=== PATIENT | male | born 1950 | race Caucasian/White ===

== ENCOUNTER 2021-10-21 09:00 | Outpatient (RCR) | payer MEDICARE, SELFPAY ==
--- NOTE | 2021-10-21 09:54 | PTOPEVAL ---
Thank you for referring Leon Collado to [facility] The patient is scheduled to be seen for therapy? ____x/week for ___ weeks. Please review, sign, date and return this plan of care TREVIN. I agree with and certify that the following plan of care is medically necessary. Referring Physician Date Admitting Provider: Attending Provider: CHLOE GILLIAM Referring Provider: *HANNA Outpatient Evaluation Start: 10/21/21 09:03 Freq: Status: Active Protocol: Document 10/21/21 09:05 [facility] (Rec: 10/21/21 09:53 [facility] [id number]) Therapy Assessment Status Assessment Status Assessment Status Evaluation Evaluation Information Problem Diagnosis lower back pain, L radiculopathy, L knee pain Onset 10/06/21 Additional Evaluation Detail LEFS = 27% functionally declined oswestry = 24% functionally declined Subjective Information patient reports he is having Query Text:As Reported By Patient/ pain in the back of the L knee Family . he reports the pain is a burning pain at times. he reports increased pain with standing after sitting for a long time. he reports he also has increased pain with standing for long time. he reports the knee feels better when it is bent up towards him . he reports he has been having this increased pain for 3-4 months. he reports he has had xray of the bilateral knees and reports he does not have arthritis in the L knee per his ortho. he reports no butt pain, but does have pain all behind the L knee. he reports he has had no xray of the lumbar spine. Prior Level of Function Comments Additional Prior Level of Function patient reports 3-4 months ago Comments he was getting around without any issues. 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 Pain Assessment Timing of Pain Assessment Timing of Pain Assessment Assessment Pain Scale Pain Scale Used Numeric (1 - 10) Self
--- NOTE | 2021-12-29 15:20 | PTOPEVAL ---
Thank you for referring Leon Collado to [facility].? The patient is scheduled to be seen for therapy? ____x/week for ___ weeks. Please review, sign, date and return this plan of care TREVIN. I agree with and certify that the following plan of care is medically necessary. Referring Physician Date Admitting Provider: Attending Provider: CHLOE GILLIAM Referring Provider: MARANDA Outpatient Evaluation Start: 10/21/21 09:03 Freq: Status: Active Protocol: Document 12/29/21 15:00 [facility] (Rec: 12/29/21 15:18 [facility] [id number]) Therapy Assessment Status Assessment Status Assessment Status Discharge Outpatient Past Medical History Neurological History Hx Neurological Disorders No Significant History Cardiovascular History Hx Hypertension Yes Respiratory History Hx COVID-19 Yes: 05/2020, mild symptoms Gastrointestinal History Hx Gastrointestinal Disorders No Significant History Genitourinary History Hx Genitourinary Disorders No Significant History Musculoskeletal History Hx Arthritis Yes: LT KNEE Hx Joint Replacement Yes: RTKA 2019 Hematological History Hx Hematological Disorders No Significant History Endocrine History Hx Endocrine Disorders No Significant History HEENT History Hx Sinus Problems Yes: CHRONIC SINUSITIS, LARGE AMT SINUS DRNG Integumentary History Hx Skin Disorders No Significant History Reproductive History Hx Reproductive Disorders No Significant History Psychosocial History Hx Anxiety Yes Hx Depression Yes Pain History History of Any Previous or Ongoing No Significant History Instance of Pain Anesthesia History Hx Anesthesia Reactions No Significant History Other History Hx Implanted Device Yes: RTKA Evaluation Information Problem Diagnosis lower back pain, L radiculopathy, L knee pain Onset 10/06/21 Additional Evaluation Detail LEFS = 15% functionally declined oswestry = 24% functionally declined Subjective Information patient reports he feels Query Text:As Reported By Patient/ great this date. he reports Family he has not been to therapy in about 2 months due to being out working on a few jobs. he reports he has been doing exercises daily and has had no flare ups or pain. he reports the worst activity for him is only when sitting for 4 h
== END 2021-12-29 16:56 | disposition home or self-care (01) ==
LOC: CHSPT 09:00
DX: M54.42 Lumbago with sciatica, left side (principal); M25.562 Pain in left knee
CPT/HCPCS: 97110; 97161; 97530

== ENCOUNTER 2021-10-27 09:10 | Outpatient (CLI) | payer MEDICARE, OTHER, SELFPAY ==
--- NOTE | 2021-10-27 09:27 | ECG_ITS ---
Measurements Intervals [place] Rate: 75 P: 32 WI: 188 QRS: -6 QRSD: 100 T: 30 QT: 364 QTc: 408 Interpretive Statements SINUS RHYTHM BORDERLINE T WAVE ABNORMALITY- INFERIOR LEADS BASELINE ARTIFACT- I, II, III, AVR BORDERLINE ECG Electronically Signed On 10-27-2021 9:33:54 CDT by Nayan Lu D.O.
== END 2021-10-27 09:11 | disposition home or self-care (01) ==
PROVIDERS: PCP Internal Medicine; Visit Provider Otolaryngology
DX: Z01.810 Encounter for preprocedural cardiovascular examination (principal); I10 Essential (primary) hypertension
CPT/HCPCS: 93005

== ENCOUNTER 2021-10-28 00:42 | Day surgery (SDC) | payer MEDICARE, OTHER, SELFPAY ==
--- NOTE | 2021-10-23 14:38 | PM.HPGS ---
History of Present Illness History of Present Illness Consent: Risks, benefits, and alternatives have been discussed and questions answered. Patient agrees to proceed with procedure. Chief complaint: Chronic Sinusitis Narrative: Leon Collado is a 71 year old male constant sinus drainage that has an opacified left maxillary sinus Review of Systems Review of Systems: All systems reviewed & are unremarkable except as noted in HPI and below PMFSH Past Medical History Medical History Headache Hypertension Surgical History Surgical History History of right knee joint replacement Hx of hand surgery Family History Family History Father Patient's father is in good health Sibling Hypertension Patient's sister is in good health Patient's brother is in good health Mother Diabetes mellitus Hypertension Social History Social History Smoking status: Former smoker Smoking end date: 06/14/09 Alcohol intake: current Comments social family medical surgical history unremarkable Meds Home Medications and Allergies Home Medications Medication Instructions Recorded Confirmed Type No Home Medications 10/16/21 10/16/21 History Allergies Allergy/AdvReac Type Severity Reaction Status Date / Time No Known Allergies Allergy Verified 10/16/21 10:52 Exam Narrative: chest clear heart murmurs abdomen soft septum deviated to the right Assessment and Plan Additional Plan plan endoscopic septoplasty and maxillary antrostomy
[2021-10-24 09:46] VITALS: BMI 30.7
--- NOTE | 2021-10-24 09:58 | PC.NURSE ---
Report to the Outpatient Waiting Room, entrance under the green pavilion located off [facility], at time _7:45AM on date _10/28/21 . OR Time: __9:45AM . - You and your visitor will be asked a series of questions to screen for COVID 19 for your protection. - Only one visitor is allowed at this time. - The patient visitor is requested to leave or wait in car when not with patient. - A mask is required within the hospital. Patients may have clear liquids (water, carbonated beverages, clear teas, apple juice) until 3 hours prior to surgery with a maximum of 20 ounces. - No food from midnight until time of surgery - Infants may have breast milk until 4 hours before surgery, formula 6 hours prior to surgery. - Children will be allowed to drink immediately following surgery. If applicable, please bring a bottle or sippy cup to assist with drinking. Juice, water, soda, and popsicles are readily available. For infants on formula, please bring formula the day of surgery. Pacifiers are allowed. Take the following medications with a SIP of water the morning of surgery: ___AMLODIPINE/BENAZEPRIL, VENLAFAXINE Medications to discontinue per physician HOLD ALL VITAMINS/SUPPLEMENT 3 DAYS PRE-OP Date to take last dose___10/24/21 Please no make-up, nail telugu, hairspray, perfume, deodorant, or body powder the day of surgery. No jewelry (including any body piercings) or valuables the day of surgery, leave them at home. Please take a shower or bath the night before, or the morning of, surgery with an antibacterial soap. Wear comfortable, loose fitting clothing. Children are encouraged to wear pajamas. - Jewelry must be removed prior to entering the operating room. Rings and piercings that are not removed may be cut off. - The hospital will not accept responsibility for valuables. - Please leave all valuables, including medications, at home the day of surgery. If you are going home after surgery, a licensed drop hammer pile driver operator must drive you home. - NO public transportation without another adult. - We recommend that an adult stay with you for 24 hours following discharge. - We also recommend that you do not drive, make important decision, drink alcoholic beverages, or take any drugs that were not prescribed by your health care provider for at least 24 hours after your discharge time. For Pediatric surgeries, we recommend two adults accompany the child home (only one inside the building at this time). Follow any additional instructions given to you from your surgeon. If you or anyone in your household have experienced Covid symptoms in the past week, please notify your surgeon or the nurse liaison at the phone number below for possible testing. Telephone instructions given to __PATIENT and asked if any additional questions and then verbalized understanding. Patient advised to call surgeon office or pre surgery nurse liaison [phone] if any additional questions.
[2021-10-28] VITALS (9 sets, daily range): BP systolic 73–163; BP diastolic 54–93; PULSE 55–80; RESP 10–16; TEMP 36.4–36.5; O2SAT 97–98
--- NOTE | 2021-10-28 06:02 | WPDHPUPDATE1 ---
History and Physical Update Update Date/Time: 10/28/21 06:02 History and Physical has been reviewed, including an updated exam of the patient. There are NO changes in the patient's condition. Risks, benefits, and alternatives have been discussed and questions answered. Patient agrees to proceed with procedure.
[2021-10-28] MEDS: ACETAMINOPHEN 500 MG TABLET 1000 MG PO (08:07)
[2021-10-28] MEDS: LACTATED RINGERS 1,000 ML 30 ML IV CONT ×2 (08:21→11:17)
--- NOTE | 2021-10-28 09:07 | P.PNAN_ITS ---
Anes - Initial Pre Proc Eval Procedure: Operation Date: 10/28/21 09:45 Proposed Procedures p Endoscopic Septoplasty, Bilateral Inferior Turbinectomy, Bilateral Maxillary Antrostomy - Vinny Carranza MD Date/Time: 10/28/21 09:07 Surgeon: Vinny Carranza MD Pre Op Diagnosis: Chronic Sinusitis Patient Data Age: 71 Gender: M Height: 1.84 m Weight: 100 kg Last Vital Signs Temp 36.5 C 10/28/21 08:01 Pulse 72 10/28/21 08:01 Resp 16 10/28/21 08:01 BP 132/85 10/28/21 08:01 Pulse Ox 98 10/28/21 08:01 Allergies Allergy/AdvReac Type Severity Reaction Status Date / Time No Known Allergies Allergy Verified 10/28/21 07:48 Home Medications Medication Instructions Recorded Confirmed Type amlodipine-benazepril 1 cap PO QAM 10/24/21 10/28/21 History celecoxib 200 mg PO QAM 10/24/21 10/28/21 History cyanocobalamin (vitamin B-12) 1,000 mcg PO DAILY 10/24/21 10/28/21 History fluticasone propionate 1 spray INTRANASAL QAM 10/24/21 10/28/21 History venlafaxine 37.5 mg PO QAM 10/24/21 10/28/21 History Patient hx anesthesia problems: none Family hx anesthesia problems: none Results Review: All pre-operative results and documents have been reviewed as part of the pre-operative evaluation. [facility] Past Medical History Medical History (Updated 10/28/21 @ 09:07 by Cristhian Ribeiro MD) Headache Hypertension Obesity Surgical History Surgical History History of right knee joint replacement Hx of hand surgery Family History Family History Father Patient's father is in good health Sibling Hypertension Patient's sister is in good health Patient's brother is in good health Mother Diabetes mellitus Hypertension Social History Social History Smoking status: Former smoker Tobacco type: cigars Smoking end date: 06/14/09 Additional smoking assessment comments: SMOKED 2-3 CIGARS/DAY X20 YRS Alcohol intake: current Drinks per week: 21 Substance use: never Living arrangements: with family Additional living arrangements comments: Spiritual care concerns: No Anes - Eval Final PreProcedure Day of Procedure 10/28/21 09:07 Patient weight: overweight Heart: regular rate and rhythm Lungs: clear to auscultation Airway: Mallampati scale class II Neurological: alert and oriented Last oral intake: >/= 8 hours ASA classification: II Emergent: no Anesthetic plan: proceed Anesthesia type and monitoring: general ETT and standard monitoring Results Review: All pre-operative results and documents have been reviewed as part of the pre-operative evaluation. Informed Consent: The patient's anesthetic plan and its attendant risks and benefits were discussed with the patient/family/POA. Questions were solicited and answers provided to the satisfaction of the patient/family/POA.
[2021-10-28] MEDS: COCAINE HCL (*CRX) 4% TOP SOLN 4 ML VIAL 1 APPLIC TOPICAL (09:36)
[2021-10-28] MEDS: LIDO 1%/EPINEPHRINE/PF 1:200,000 30 ML VIAL XX (09:41)
--- NOTE | 2021-10-28 10:12 | W.PM.PROC2 ---
Procedure Note - Detailed Date of Procedure 10/28/21 Pre-op Diagnosis Chronic Sinusitis Post-op Diagnosis Same Procedure Performed Septal plasty left nasal antral window Surgeon Vinny Carranza MD Description of Procedure Patient prepped and draped usual fashion general anesthesia the septum was injected xylocaine with adrenaline as was the inferior turbinate and nasal antral window area a right hermelindo transfix is made left anterior and posterior tunnels elevated the bony cartilage junction right posterior elevated the bony deviation was removed this swelling the cartilages and cysts and bony septum to the midline incision closed with 4-0 chromic and Tyler splints sutured in with 2-0 silk attention directed to the left nasal antral window the middle turbinate was medialized and a large nasal antral window was created into the left maxillary sinus large amount of pus and thickened mucous membrane lining was removed from the left maxillary sinus half of a Tyler splint behalf of nasal Spore splint placed in the left side
--- NOTE | 2021-10-28 10:16 | P.OP_ITS ---
Procedure Note - Detailed Date of Procedure 10/28/21 Pre-op Diagnosis Chronic Sinusitis Post-op Diagnosis Same Surgeon Vinny Carranza MD
--- NOTE | 2021-10-28 10:17 | P.OP_ITS ---
Procedure Note - Detailed Date of Procedure 10/28/21 Pre-op Diagnosis Chronic Sinusitis Post-op Diagnosis Same Procedure Performed Septoplasty and left maxillary antrostomy Surgeon Vinny Carranza MD Anesthesia General Description of Procedure Patient prepped and draped in usual fashion after induction of general endotracheal anesthesia. The nose was packed with cocaine 4% impregnated cottonoids. Injected 1% xylocaine 1 to [id number] epinephrine. With the aid of the 0 degree endoscope on the right side the nose was inspected the middle turbinate was medialized and turbenectomy was done with the micro debrider the ethmoid bulla opened with microdebrider as was the basal lamella and the posterior ethm oid. The natural ostia of the maxillary sinus was opened and enlarged with microdebrider thickened mucous membrane lining was removed and then packed with a mature this procedure repeated on the other sinus with identical similar findings. Uncinectomy was done on both sides. The ethomoid bulla was opened with micro debrider thickened mucos membrane was removed. Was then packed with Surgicel. Patient awakened returned to recovery in good condition a large left nasal antral window was then created a large amount of pus was aspirated packed with nasal support. Complications No immediate complications Condition Stable
--- NOTE | 2021-10-28 11:18 | SUR.PHASEI ---
1022 pt awake, oral airway out, pt started having a coughing spell. started oozing blood from nose and mouth, dr engel at bedside with me suctioning blood out of nose and mouth. afrin nasal spray brought from or squirted into each nostril. bleding/oozing has subsided, pt is doing okay. vital signs stable, no pain, new drip pad placed below nose.
[2021-10-28] MEDS: oxyCODONE HCL (*CRX) 5 MG TAB IR PO (12:08)
--- NOTE | 2021-10-29 08:53 | W.PM.PROC2 ---
Procedure Note - Detailed Date of Procedure 10/29/21 Pre-op Diagnosis Chronic Sinusitis septal deviation left maxillary sinusitis Post-op Diagnosis Same Procedure Performed septoplasty left nasal antral window Surgeon Vinny Carranza MD Description of Procedure patient was prepped and draped fraction general anesthesia the nose was packed with Afrin impregnated cottonoids and injected with xylocaine with adrenaline a right hermelindo transection was made left anterior and posterior tunnels elevated the bony cartilaginous junction and the bony deviation was removed the swelling the cartilaginous bony remnants to the midline this incision was then closed with 4-0 chromic and Tyler splints sutured with 2-0 silk at this point attention was directed to the low left maxillary sinus the middle turbinate was medialized and a large nasal antral window was created with Adair and backbiting forceps a large amount of pus was aspirated as well as thickened mucous membrane lining a nasal spur nasal pore splint of packing placed in and the procedure terminated Estimated Blood Loss -60.0
== END 2021-10-28 12:34 | disposition home or self-care (01) ==
PROVIDERS: PCP Internal Medicine; Visit Provider Otolaryngology
PROC: (CPT 30520; principal; 2021-10-28 09:45)
DX: J32.9 Chronic sinusitis, unspecified (principal); J33.8 Other polyp of sinus; I10 Essential (primary) hypertension; E66.9 Obesity, unspecified; Z68.29 Body mass index [BMI] 29.0-29.9, adult; Z87.891 Personal history of nicotine dependence
CPT/HCPCS: 30520; 31020; 88305; 88311; A9270; J0330; J1100; J2405; J2704; J3010; J7120

== ENCOUNTER 2023-12-28 07:43 | Outpatient (RCR) | payer MEDICARE, OTHER, SELFPAY ==
--- NOTE | 2023-12-28 07:57 | OPREHPOC ---
Outpatient Therapy Plan of Care This is a Multidisciplinary Plan of Care that may contain components documented by all disciplines (PT, OT, and ST.) PT Problem 1 PT Problem #1 Knowledge Deficit PT Goal 1 Goal 1. independent and compliant with HEP Target Visit 4 PT Problem 2 PT Problem #2 Pain PT Goal 1 Goal 1. patient to report no more than 2/10 pain in the R shoulder the last week. PT Problem 3 PT Problem #3 Impaired Strength PT Goal 1 Goal 1. 5/5 bilateral shoulder ER Target Visit 9 PT Problem 4 PT Problem #4 Impaired Functional Mobil PT Goal 1 Goal 1. quick dash to display less than 20% functional deficits 2. patient to report sleeping through the night without pain in the R shoulder. 3. 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 patient to perform 30 minutes of therapy exercises without rest and no increased pain Target Visit 9
--- NOTE | 2023-12-28 07:58 | PTOPEVAL1 ---
Assessment and note entered by JT File, PT Evaluation Information Assessment Status Evaluation Diagnosis R biceps tendonitis Other ICD-10 Condition Codes ( M75.21 PT) Onset 12/24/23 Subjective Information patient reports he has pain in the R shoulder. he reports he saw his MD back in july for this issue. he reports he was put on meds for the pain and inflammation. he reports he has difficulty sleeping at night due to the pain. 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 he reports the pain is all around the R shoulder. he reports he had an xray of the R shoulder. he reports he has had issues with the R Shoulder for several years. he reports it has been more flared up as of late. he reports no NTB in the hands. Reported Pain Level Pain Score 0: Self Report Assessment PT Clinical Summary mr. avelar is a 73 yo man who presents to skilled PT services for evaluation and treatment of R shoulder pain. he displays tenderness to palpation over the biceps long head, positive impingement testing, and patient with repetitive movements. his signs and symptoms indicated a tendonitis of the biceps long head of the R shoulder. continued skilled PT is indicated to improve his objective/ functional deficits and progress towards return to prior level activities without limitations. Plan of Care Interventions Electrical Stimulation,Hot Pack/Cold Pack,Manual Therapy,Neuro Re-education,Patient/Caregiver Educati,Therapeutic Activities,Therapeutic Exercise PT Services Indicated Yes Treatment Frequency and 3x weekly for 9 visits Duration These treatments will address the objective and functional deficits as defined above. The patient will be advanced safely and appropriately in order for the patient to progress towards his/her prior level of function. Additional exercises will be introduced and as well as a comprehensive home exercise program upon discharge, if needed, ?to ensure carryover of functional gains achieved in the clinic. This treatment plan has been reviewed and agreement upon by the patient.
--- NOTE | 2024-01-03 08:50 | PCPTNOTE ---
pt lizet for tomorrow.
--- NOTE | 2024-01-12 09:46 | PCPTNOTE ---
Patient called & cancelled scheduled appointment this date due to having to work. -Prisclia Sanchez, PT
== END 2024-01-07 09:15 | disposition home or self-care (01) ==
LOC: CHSPT 07:43
PROVIDERS: Visit Provider Internal Medicine
DX: M75.21 Bicipital tendinitis, right shoulder (principal)
CPT/HCPCS: 97110; 97140; 97150; 97161

== ENCOUNTER 2025-04-03 09:19 | Outpatient (CLI) | payer MEDICARE, OTHER, SELFPAY ==
--- NOTE | ~2025-04-03 | XR_ITS ---
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 COMPARISON: No comparisons available. Findings: No acute fracture or malalignment. There are severe degenerative changes of the distal interphalangeal joints especially the first digit with severe degenerative changes of the first metacarpal carpal joint, no erosions are identified Soft tissues unremarkable. Impression: No acute fracture or malalignment. Reviewed, dictated and finalized at location P. Impression: No acute fracture or malalignment.
--- OUTSIDE RECORDS SUMMARY | 2025-04-03 10:34 | XMS_ITS | Clinical Summary ---
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 06/18/2017 Active Active Problems No known active problems Medical History Medical History Date Comments Hypertension Depression Social History Tobacco Use Types Packs/Day Years Used Date Smoking Tobacco: Never Smokeless Tobacco: Never Personal Safety Answer Date Recorded Getting School Help Needed Not on file 08/27 Sex and Gender Information Value Date Recorded Sex Assigned at Not on file Legal Sex Male 10:44 AM [employer] Gender Identity Not on file Sexual Orientation Not on file Obstetrics History Last Filed Vital Signs Vital Sign Reading Time Taken Comments Blood Pressure 127/87 09/01/2017 12:20 PM CDT Pulse 68 09/01/2017 12:20 PM CDT Temperature - - Respiratory Rate - - Oxygen Saturation - - Inhaled Oxygen Concentration - - Weight 102.5 kg (226 lb) 09/01/2017 12:20 PM CDT Height 188 cm (6' 2) 09/01/2017 12:20 PM CDT Body Mass Index 29.02 09/01/2017 12:20 PM CDT Plan of Treatment Not on file Insurance [place] [address] MEDICARE Care Teams Horse Rider Relationship Specialty Start Date End Date Damien Otto MD [id number] [place] [address] PCP - General Internal Medicine 10/10/21
== END 2025-04-03 09:20 | disposition home or self-care (01) ==
PROVIDERS: PCP Internal Medicine; Visit Provider Plastic Surgery
DX: M18.0 Bilateral primary osteoarthritis of first carpometacarpal joints (principal)
CPT/HCPCS: 73130

== ENCOUNTER 2025-04-17 08:05 | Outpatient (CLI) | payer MEDICARE, OTHER, SELFPAY ==
--- OUTSIDE RECORDS SUMMARY | 2025-04-17 08:12 | XMS_ITS | Encounter Summary ---
Author Organization [facility] Address [address] [place] [address] Phone Care Team Providers Care Finance Advisor Name Role Phone Damien Otto MD Primary Care Provider [phone] Aramis Moreno MD Unavailable [phone] Reason for Visit * Reason Comments Medication Refill Encounter Details Date Type Department Care Team (Late st Contact Info) Description 08/01/2022 Refill [facility] - Primary Care - [place] [address] [place] [address] Damien Otto MD [address] [place] [address] Medication Refill Social History Tobacco Use Types Packs/Day Years Used Date Smoking Tobacco: Former Cigarettes 0.1 10 0 09/04/2000 - 09/04/2010 Cigars Smokeless Tobacco: Never Alcohol Use Standard Drinks/Week Comments Not Asked 14 (1 standard drink = 0.6 oz pu re alcohol) 2 beers daily Education Answer Date Recorded What is the highest level of school you have completed or the highest degree you have received? 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 No / Unsure 07/31/2022 8:22 AM HADOOP ADMIN documented as of this encounter Miscellaneous Notes * Telephone Encounter - Hyun Comer RN - 08/03/2022 8:36 AM CST venlafaxine (EFFEXOR) 37.5 MG Tablet 90 Tablet 1 04/23/2022 Refill too soon OP ADMIN documented in this encounter Plan of Treatment Upcoming Encounters Date Type Department Care Team (Late st Contact Info) Description 08/09/2025 8:00 AM HADOOP ADMIN Office [facility] Care - [place] [address] [place] [address] Damien Otto MD [address] [place] [address] documented as of this encounter Visit Diagnoses Diagnosis Anxiety and depression Dysthymic disorder documented in this encounter Additional Health Concerns Assessment Noted Time PHQ-9 Depression Total Score: 0 12/10/19 18 10:00 AM CDT documented as of this encounter Care Teams Finance Advisor Relationship Specialty Start Date End Date Damien Otto MD [address] [place] [address] PCP - General Internal Medicine 09/03/16 [place] [address] [address] [place] [address] Consulting Physician Orthopaedic Surgery 12/13/18 Dale Gupta MD Consulting Physician Ophthalmology 11/16/24 documented as of this encounter
--- OUTSIDE RECORDS SUMMARY | 2025-04-17 08:12 | XMS_ITS | Encounter Summary ---
Author Organization [facility] Address [address] [place] [address] Phone Care Team Providers Care Pharmacist Intern Name Role Phone Damien Otto MD Primary Care Provider [phone] Aramis Moreno MD Unavailable [phone] Reason for Visit * Reason Comments Medication Refill Encounter Details Date Type Department Care Team (Late st Contact Info) Description 08/14/2023 Refill [facility] - Family Medicine - [place] [address] [place] [address] Damien Otto MD [address] [place] [address] Medication Refill Social History Tobacco Use Types Packs/Day Years Used Date Smoking Tobacco: Former Cigarettes 0.1 10 0 09/04/2000 - 09/04/2010 Cigars Smokeless Tobacco: Never Alcohol Use Standard Drinks/Week Comments Not Currently 14 (1 standard drink = 0.6 oz pu re alcohol) 2 beers daily [facility] Utilities Answer Date Recorded In the past 12 months has [employer] electric, gas, oil, or water company threatened to shut off services in your home? No 08/04/2023 Social Connection and Isolation Panel Answer Date Recorded In a typical week, how many times do you talk on the phone with family, friends, or neighbors? Three times a week 08/04/2023 How often do you get togethe r with friends or relatives? More than three times a week 08/04/2023 How often do you attend chur ch or presybeterian services? 1 to 4 times per year 08/04/2023 Do you belong to any clubs o r organizations such as yarsani groups, unions, fraternal or athletic groups, or school groups? No 08/04/2023 How often do you attend meet ings of the clubs or organizations you belong to? Never 08/04/2023 Are you , , di vorced, , never , or living with a partner? 08/04/2023 AUDIT-C Answer Date Recorded Q1: How often do you have a drink containing alcohol? 4 or more times a week 08/04/2023 Q2: How many drinks containi ng alcohol do you have on a typical day when you are drinking? 3 or 4 Q3: How often do you have si x or more drinks on one occasion? Never 08/04/2023 Overall Financial Resource Strain (CARDIA) Answe r Date Recorded How hard is it for you to pa y for the very basics like food, housing, medical care, and heating? Not very hard 08/04/2023 PHQ-2 Answer Date Recorded Total Score - Questions 1-9 0 05/14 [facility] - Occupational Stress Questionnaire Answer Date Recorded Do you feel stress - tense, restless, nervous, or anxious, or unable to sleep at night because your mind is troubled all the time - these days? Not at all 08/04/2023 Exercise Vital Sign Answer Date Recorde d On average, how many days pe r week do you engage in moderate to strenuous exercise (like a brisk walk)? 7 days 08/04/2023 On average, how many minutes do you engage in exercise at this level? 20 min 08/04/2023 Hunger Vital Sign Answer Date Recorded Within the past 12 months, y ou worried that your food would run out before you got the money to buy more. Never true 08/04/19 24 Within the past 12 months, t he food you bought just didn't last and you didn't have money to get more. Never true 08/04/2023 PRAPARE - Transportation Answer Date Re corded In the past 12 months, has l ack of transportation kept you from medical appointments or from getting medications? No 07/16 In the past 12 months, has l ack of transportation kept you from meetings, work, or from getting things needed for daily living? No 08/04/2023 Housing Stability Vital Sign Answer Jigar e Recorded In the last 12 months, was t here a time when you were not able to pay the mortgage or rent on time? No 08/04/2023 Number of Places Lived in the Last Year Not on f ile 08/04/2023 In the last 12 months, was t here a time when you did not have a steady place to sleep or slept in a retirement (including now)? No 08/04/2023 Education Answer Date Recorded What is the [...] file Not on file Not on file documented as of this encounter Miscellaneous Notes * Telephone Encounter - Phong King RN - 08/16/2023 10:12 AM CST Medication(s) refilled and signed per [facility] Chronic Medication Refill Standing Order for Pediatricand Adult Patients. Requested Prescriptions Pending Prescriptions Disp Refills amLODIPine-benazepril (LOTREL) 2.5-10 MG Capsule [Pharmacy Med Name: AMLODIPINE- BENAZ 2.5/10MG CAPSULES] 90 Capsule 3 Sig: TAKE 1 CAPSULE BY MOUTH EVERY MORNING MELODIE INHIBITOR-[employer] TORO PROTOCOL Passed - 08/14/2023 5:51 AM Passed - Serum potassium on record in past 12 months POTASSIUM Date Value Ref Range Status 08/06/2023 4.1 3.5 - 5.1 mmol/L Final Passed - Blood pressure on record in past 12 months Clinician-entered: BP Readings from Last 3 Encounters: 08/06/23 120/68 05/24/23 120/72 09/01/22 122/74 Patient-entered: No data recorded Passed - Visit with relevant provider in past 12 months or upcoming 90 days Recent Visits Date Type Provider Dept 08/06/23 Office Visit Damien Otto MD [facility] 05/24/23 Office Visit Gabe Bonilla, ILIR [facility] Showing recent visits within past 365 days and meeting all other requirements Future Appointments No visits were found meeting these conditions. Showing future appointments within next 90 days and meeting all other requirements Passed - GFR on record in past 12 months GFR, EST. NONAFRICAN Date Value Ref Range Status 08/06/2023 56 (L) >=60 Final ITECTURAL PRACTICE MANAGER documented in this encounter Plan of Treatment Upcoming Encounters Date Type Department Care Team (Late st Contact Info) Description 08/09/2025 8:00 AM ARCHITECTURAL PRACTICE MANAGER Office Visit [facility] - Primary Care - [place] [address] [place] [address] Damien Otto MD [address] [place] [address] documented as of this encounter Visit Diagnoses Not on filedocumented in this encounter Additional Health Concerns Assessment Noted Time PHQ-9 Depression Total Score: 0 05/24/20 23 7:45 AM ARCHITECTURAL PRACTICE MANAGER documented as of this encounter Care Teams Pharmacist Intern Relationship Specialty Start Date End Date Damien Otto MD [address] [place] [address] PCP - General Internal Medicine 09/03/16 [place] [address] [address] Consulting Physician Orthopaedic Surgery 12/13/18 Dale Gupta MD Consulting Physician Ophthalmology 11/16/24 documented as of this encounter
--- OUTSIDE RECORDS SUMMARY | 2025-04-17 08:12 | XMS_ITS | Encounter Summary ---
Author Organization [facility] Address [address] [place] [address] Phone Care Team Providers Care Roller Skate Repairer Name Role Phone Damien Otto MD Primary Care Provider [phone] Aramis Moreno MD Unavailable [phone] Reason for Visit * Reason Comments Medication Refill Encounter Details Date Type Department Care Team (Late st Contact Info) Description 10/27/2023 Refill [facility] - Primary Care - [place] [address] [place] [address] Damien Otto MD [address] [place] [address] Medication Refill Social History Tobacco Use Types Packs/Day Years Used Date Smoking Tobacco: Former Cigarettes 0.1 10 0 09/04/2000 - 09/04/2010 Cigars Smokeless Tobacco: Never Alcohol Use Standard Drinks/Week Comments Not Currently 14 (1 standard drink = 0.6 oz pu re alcohol) 2 beers daily [facility] Utilities Answer Date Recorded In the past 12 months has [email or web address], gas, oil, or water company threatened to [...] often do you attend chur ch or zoroastrianism services? 1 to 4 times per year 08/04/2023 Do you belong to any clubs o r organizations such as amish groups, unions, fraternal or athletic groups, or [...] Total Score - Questions 1-9 0 05/14 [facility] of Occupat ional Health - Occupational Stress [...] place to sleep or slept in a long term (including now)? No 08/04/2023 Education Answer Date [...] encounter Miscellaneous Notes * Telephone Encounter - Myrna Deluna RN - 10/27/2023 8:38 AM CDT [facility] Medication Refill Standing Order for Pediatricand Adult Patients. Requested Prescriptions Pending Prescriptions Disp Refills venlafaxine (EFFEXOR) 37.5 MG Tablet [Pharmacy Med Name: VENLAFAXINE 37.5MG TABLETS] 90 Tablet 2 Sig: TAKE 1 TABLET BY MOUTH DAILY SNRI (6 Month Refill Only) Protocol Passed - 10/27/2023 8:36 AM Passed - Visit with relevant provider in past 6 months or upcoming 90 days Recent Visits Date Type Provider Dept 08/06/23 Office Visit Damien Otto MD [facility] 05/24/23 Office Visit Gabe Bonilla PAC [facility] Showing recent visits within past 182 days and meeting all other requirements Future Appointments No visits were found meeting these conditions. Showing future appointments within next 90 days and meeting all other requirements Passed - Has an encounter in the past 6 months with a depression or anxiety visit diagnosis Passed - Patient has established therapy with Serotonin-Norepinephrine Reuptake Inhibitors for at least 6 months documented in this encounter Plan of Treatment Upcoming Encounters Date Type Department Care Team (Late st Contact Info) Description 08/09/2025 8:00 AM INSPECTOR PUBLICATIONS Office Visit [facility] - Primary Care - [place] [address] [place] [address] Damien Otto MD [address] [place] [address] documented as of this encounter Visit Diagnoses Diagnosis Anxiety and depression Dysthymic disorder documented in this encounter Additional Health Concerns Assessment Noted Time PHQ-9 Depression Total Score: 0 05/24/20 7:45 AM INSPECTOR PUBLICATIONS documented as of this encounter Care Teams Roller Skate Repairer Relationship Specialty Start Date End Date Damien Otto MD [address] [place] [address] PCP - General Internal Medicine 09/03/16 [place] [address] [facility] [address] [place] [address] Consulting Physician Orthopaedic Surgery 12/13/18 Dale Gupta MD Consulting Physician Ophthalmology 11/16/24 documented as of this encounter
--- OUTSIDE RECORDS SUMMARY | 2025-04-17 08:12 | XMS_ITS | Clinical Summary ---
Author Organization [facility] Address [address] [place] [address] Care Team Providers Care Charge Account Authorizer Name Role Phone Damien Otto MD Primary Care Provider [phone] Source Comments [employer],non-owned Affiliates and Associated Physician Practices is amultiple site organization consisting of ambulatory clinics and hospital sitesin [place], [place], [place] and [place]. This disclosure is being madepursuant to the Care Everywhere program and may not contain all information available regarding this patient. Last updated 18.[employer] Allergies No known active allergies Medications * Be aware that medications may not be up to date on this document. Alwaysverify current medications with the patient. amLODIPine-christiano zepril (LOTREL) 2.5-10 MG capsule once daily 9 Active venlafaxine XR 24hr (EFFEXOR XR) 37.5 MG capsule Take 1 (one) capsule by mouth once daily 9 Active vitamin D3-cholecalcife rol (CHOLECACIFEROL ) 1000 units tablet Take by mouth once daily Active cyanocobalamin (Vitamin B-12) 1000 MCG tablet Take 1 (one) tablet by mouth once daily Active Multiple Vitamins-Minera ls (ICAPS AREDS 2 PO) Take by mouth once daily Active omeprazole (PriLOSEC) 20 MG capsule Take 1 (one) capsule by mouth daily before breakfast for 42 days 42 capsule 03/02/2024 2:16 PM CDT 4 Active acetaminophen (Tylenol) 500 MG capsule Take 2 (two) capsules by mouth 3 times daily Take for ten days then as needed. 4 Active celecoxib (CeleBREX) 100 MG capsule Take 1 (one) capsule by mouth 2 times daily 60 capsule 1 4 Active oxyCODONE, immediate release, (Roxicodone) 5 MG tabletIndicatio ns:Postoperativ e pain Take 1 (one) tablet to 2 (two) tablets by mouth every 4 hours as needed for Pain 42 tablet 4 Active methylPREDNISol one (Medrol Dosepak) 4 MG tablet Take by mouth as directed Take as directed by mouth per package instructions. 21 tablet 4 Active Active Problems Problem Noted Date Diagnosed Date Low back pain with left-sided sciatica 2 Primary osteoarthritis of left knee 08/19/2021 Status post right knee replacement 08/19/2021 Anxiety disorder, unspecified 07/07/2019 Disturbance of skin sensation 07/07/2019 Esophageal reflux 07/07/2019 Vitamin D deficiency 07/07/2019 RLS (restless legs syndrome) 06/21/2019 Duodenal ulcer 06/18/2019 Acute blood loss anemia 06/16/2019 Gastrointestinal hemorrhage with melena 06/16/19 20 Orthostatic hypotension 06/16/2019 Primary osteoarthritis of right knee 12/30/2018 Essential hypertension 03/19/2010 Immunizations Immunization Administration Dates Next Due INFLUENZA VACCINE, HIGH-DOSE , QUADR. (FLUZONE HIGH-DOSE QUADRIVALENT; 65Y+), 0.7 ML (HD-IIV4) 05/26/2019 Social History Tobacco Use Types Packs/Day Years Used Date Smoking Tobacco: Former Cigars Smokeless Tobacco: Never Tobacco Cessation:Counseling Given: Not Answered Comments:Quit many years Alcohol Use Standard Drinks/Week Comments Yes 21 (1 standard drink = 0.6 oz pu re alcohol) AUDIT-C Answer Date Recorded Q1: How often do you have a drink containing alcohol? Monthly or less 03/01/2024 Q2: How many drinks containi ng alcohol do you have on a typical day when you are drinking? Patient does not drink 4 Q3: How often do you have si x or more drinks on one occasion? 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 BOARDS STRIPPER ETCHER Gender Identity Not on file Sexual Orientation Not on file Last Filed Vital Signs Vital Sign Reading Time Taken Comments Blood Pressure 164/86 03/02/2024 11:09 AM CDT Pulse 68 03/02/2024 11:09 AM CDT Temperature 36.4 C (97.5 F) 03/02/2024 11:09 AM CDT Respiratory Rate 19 03/02/2024 11:09 AM CDT Oxygen Saturation 97% 03/02/2024 11:09 AM CDT Inhaled Oxygen Concentration 31% 05/25/2019 6 :30 PM PRINTED CIRCUIT BOARDS STRIPPER ETCHER Weight 104.3 kg (230 lb) 04/07/2024 8:42 AM CDT Height 185.4 cm (6' 1) 04/07/2024 8:42 AM CDT Body Mass Index 30.34 04/07/2024 8:42 AM CDT Plan of Treatment Health Maintenance Due Date Last Done Comments COLOGUARD (AGES 45-75) - COL ON CA SCREENING 1949 COLON MONITORING 1949 COLONOSCOPY - COLON CA SCREENING 1949 CT COLONOGRAPHY - COLON CA SCREENING 1950 Colorectal Cancer Screening 1949 FIT - COLON CA SCREENING 1949 FLEX SIG - COLON CA SCREENING 1949 MEDICARE AWV 12 MONTHS 1949 HEPATITIS C SCREENING 09/24/1967 DTAP/TDAP/TD VACCINES (1 - Tdap) 1968 PNEUMOCOCCAL VACCINE 50+ (1 of 1 - PCV) 09/29/1999 ZOSTER VACCINE (1 of 2) 09/29/1999 DEPRESSION SCREENING 06/14/2024 10/18/2023 LIPID TESTING 06/17/2024 06/17/2019 Respiratory Syncytial Virus (RSV) Vaccine Pt: or over 60 yrs (1 - 1-dose 75+ series) 2024 COVID-19 VACCINE ( - 2023-2 5 season) 2025 INFLUENZA VACCINE (#1) 2025 9, 04/03/2018, 03/25/2016 HEPATITIS B VACCINE Aged Out No longe r eligible based on patient's age to complete this topic HIB VACCINE Aged Out No longer eligi ble based on patient's age to complete this topic HPV VACCINE Aged Out No longer eligi ble based on patient's age to complete this topic MENINGOCOCCAL (Group B) VACCINE SHARED DECISION-MAKING Aged Out No longer eligible based on patient's age to complete this topic MENINGOCOCCAL GROUPS A/C/Y/W VACCINE Aged Out No longer eligible b ased on patient's age to complete this topic Medical Devices Implanted Type Area Marine Engineering Professor Device Identifier Shelf Expiration Date Model / Serial / Lot Cmnt Bone Djo Srg Cblt 40gm Hvisc Strl Implanted:Qty : 2 on 05/25/2019 by Aramis Moreno MD at [facility] Right: Knee [employer] 08/04/2020 [id number] / / [id number] Cmpnt Ptlr 34mm 1 Pg Wire Ascnt Arcm Kn Implanted:Qty : 1 on 05/25/2019 by Aramis Moreno MD at [facility] Right: Knee [employer] 04/28/2024 [id number] / / [id number] Tray Tib 79mm Kn Cocr I Beam Implanted:Qty : 1 on 05/25/2019 by Aramis Moreno MD at [facility] Right: Knee [employer] 04/09/2029 [id number] / / [id number] Cmpnt Fem Kn Rt Cr Cmnt Prm Vngrd Intlk Implanted:Qty : 1 on 05/25/2019 by Aramis Moreno MD at [facility] Right: Knee [employer] 01/29/2029 [id number] / / [id number] Brng [id number] Vngrd Arcm Kn Ant Stab Implanted:Qty : 1 on 05/25/2019 by Aramis Moreno MD at [facility] Right: Knee [employer] 01/06/2024 [id number] / / [id number] Wire K 1.1mm 229mm 2 End Troc Pnt Sty 1 Implanted:Qty : 2 on 05/20/2021 by Briana Tillman MD at [facility] Right: Thumb [employer] [id number] / / [id number] Tray Tib 83mm Kn Cocr I Beam Implanted:Qty : 1 on 03/01/2024 by Aramis Moreno MD at [facility] Left: Knee [employer] 08/18/2032 [id number] / / [id number] Cmpnt Fem Kn Lt Cr Cmnt Prm Vngrd Intlk Implanted:Qty : 1 on 03/01/2024 by Aramis Moreno MD at [facility] Left: Knee [employer] 12/29/2033 [id number] / / [id number] Jesu Brng [id number] Vngrd Arcm Kn Ant Stab Implanted:Qty : 1 on 03/01/2024 by Aramis Moreno MD at [facility] Left: Knee [employer] 2028 [id number] BILL ONLY / / [id number] Cmnt Bone Plc R 40gm Grn Implanted:Qty : 1 on 03/01/2024 by Aramis Moreno MD at [facility] Left: Knee [employer] 06/13/2026 [id number] / / [id number] Cmnt Bone Plc R 40gm Grn Implanted:Qty : 1 on 03/01/2024 by Aramis Moreno MD at [facility] Left: Knee [employer] 06/13/2026 [id number] / / [id number] Cmpnt Ptlr Std 31mm 3 Pg Kn Ser A Implanted:Qty : 1 on 03/01/2024 by Aramis Moreno MD at [facility] Left: Knee [employer] 10/04/2028 [id number] / / [id number] Insurance MEDICARE [employer] [facility] Advance Directives Documents on File Type Date Recorded 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
--- OUTSIDE RECORDS SUMMARY | 2025-04-17 08:12 | XMS_ITS ---
Author Organization [facility] Address [address] [facility] [address] [place] [address] Phone Care Team Providers Care Acid Changer Name Role Phone Damien Otto MD Primary Care Provider [phone] Aramis Moreno MD Unavailable [phone] OnCall Chronic Care Management Status:Identified (Enrolling) Start date:03/22/2025 Enrollment reason:Identified using claims or encounter data Related social drivers of health:Intimate Partner Violence, Social Connections, Alcohol Use, Tobacco Use, Financial Resource Strain,Depression, Stress, Physical Activity, Food Insecurity, Transportation Needs, Housing Stability, Utilities Continued Care and Services Coordination
--- OUTSIDE RECORDS SUMMARY | 2025-04-17 08:13 | XMS_ITS | Clinical Summary ---
Author Organization [facility] Address [address] [place] [address] [place] [address] Phone Care Team Providers Care Chemical Research Worker Name Role Phone Damien Otto MD Primary Care Provider [phone] Aramis Moreno MD Unavailable [phone] Allergies No known active allergies Medications Cholecalciferol (VITAMIN D3) 1000 UNIT Tablet Take by mouth every morning. Active Cyanocobalamin (B-12 PO) Take 1,000 mcg by mouth every morning. Active MULTIPLE VITAMINS-MINERA LS PO Take 1 Tablet by mouth daily. Active venlafaxine (EFFEXOR) 37.5 MG TabletIndicatio ns:Anxiety and depression TAKE 1 TABLET BY MOUTH DAILY 90 Tablet 2 01/26/2025 Active amLODIPine-christiano zepril (LOTREL) 2.5-10 MG Capsule TAKE 1 CAPSULE BY MOUTH EVERY MORNING 90 Capsule 2 01/26/2025 Active Active Problems Problem Noted Date Diagnosed Date Low back pain with left-sided sciatica 2 Constipation 07/26/2020 Erectile dysfunction 12/19/2019 Vitamin D deficiency 07/07/2019 Gastroesophageal reflux disease without esophagi tis 07/07/2019 RLS (restless legs syndrome) 06/21/2019 Orthostatic hypotension 06/16/2019 Primary osteoarthritis of left knee 12/30/2018 Hypertension, essential Anxiety and depression Arthritis Resolved Problems Problem Noted Date Diagnosed Date Resolved Date Status post right knee replacement 08/19/2021 09/17/2021 Duodenal ulcer 06/18/2019 07/31/2021 Acute blood loss anemia 06/16/201907/15 Gastrointestinal hemorrhage with melena 06/16/2019 07/31/2021 Ureteropelvic junction (UPJ) obstruction, right 10/21/2016 07/31/2021 Encounters Date Type Department Care Team Description 01/26/2025 Refill [facility] - Primary Care - [place] [address] [place] [address] Damien Otto MD Medication Refill from Last 3 Months Immunizations Immunization Administration Dates Next Due Influenza Vaccine greater than 3 yrs 05/26/2019, 04/03/2018 Influenza, high-dose, trivalent, PF 05/26/2019,1 PUR PCV-13 09/04/2016 PUR TDAP 7+ YRS IM 09/04/2016 Pneumococcal Vaccine Adult - 23 Valent 8 Family History Medical History Relation Name Comments Cancer Brother testicular Congestive Heart Failure Father Diabetes Mother Hypertension Mother Relation Name Status Comments Brother Father Mother Social History Tobacco Use Types Packs/Day Years Used Date Smoking Tobacco: Former Cigarettes 0.1 10 0 09/04/2000 - 09/04/2010 Cigars Smokeless Tobacco: Never Alcohol Use Standard Drinks/Week Comments Yes 14 (1 standard drink = 0.6 oz pu re alcohol) [facility] Utilities Answer Date Recorded In the past 12 months has [employer], oil, or water [employer] threatened to shut off services in your home? No 08/07/2024 Social Connection and Isolation Panel Answer Date Recorded In a typical week, how many times do you talk on the phone with family, friends, or neighbors? More than three times a week 08/07/2024 How often do you get togethe r with friends or relatives? More than three times a week 08/07/2024 How often do you attend chur or confucianism services? 1 to 4 times per year 08/07/2024 Do you belong to any clubs o r organizations such as restorationist groups, unions, fraternal or athletic groups, or school groups? No 08/07/2024 How often do you attend meet ings of the clubs or organizations you belong to? Never 08/07/2024 Are you , , di vorced, , never , or living with a partner? 08/07/2024 AUDIT-C Answer Date Recorded Q1: How often do you have a drink containing alcohol? 4 or more times a week 08/07/2024 Q2: How many drinks containi ng alcohol do you have on a typical day when you are drinking? 3 or 4 Q3: How often do you have si x or more drinks on one occasion? Never 08/07/2024 Overall Financial Resource Strain (CARDIA) Answe r Date Recorded How hard is it for you to pa y for the very basics like food, housing, medical care, and heating? Not hard at all 08/07/2024 PHQ-2 Answer Date Recorded Total Score - Questions 1-9 0 07/16 [facility] - Occupational Stress Questionnaire Answer Date Recorded Do you feel stress - tense, restless, nervous, or anxious, or unable to sleep at night because your mind is troubled all the time - these days? Not at all 08/07/2024 Exercise Vital Sign Answer Date Recorde d On average, how many days pe r week do you engage in moderate to strenuous exercise (like a brisk walk)? 5 days 08/07/2024 On average, how many minutes do you engage in exercise at this level? 30 min 08/07/2024 Hunger Vital Sign Answer Date Recorded Within the past 12 months, y ou worried that your food would run out before you got the money to buy more. Never true 08/07/19 25 Within the past 12 months, t he food you bought just didn't last and you didn't have money to get more. Never true 08/07/2024 PRAPARE - Transportation Answer Date Re corded In the past 12 months, has l ack of transportation kept you from medical appointments or from getting medications? No 07/16 In the past 12 months, has l ack of transportation kept you from meetings, work, or from getting things needed for daily living? No 08/07/2024 Housing Stability Vital Sign Answer Jigar e [...] place to sleep or slept in a fdc (including now)? No 08/04/2023 Housing Stability Vital Sign Answer Jigar e Recorded In the last 12 months, was t here a time when you were not able to pay the mortgage or rent on time? No 08/07/2024 In the past 12 months, how m any times have you moved where you were living? 0 08/07/2024 At any time in the past 12 m [facility], were you homeless or living in a fdc (including now)? No 08/07/2024 Education Answer Date Recorded What is the [...] file Not on file Not on file Last Filed Vital Signs Vital Sign Reading Time Taken Comments Blood Pressure 124/72 11/16/2024 8:41 AM CDT Pulse 77 11/16/2024 8:41 AM CDT Temperature 36.7 C (98.1 F) 11/16/2024 8:41 AM CDT Respiratory Rate 20 11/16/2024 8:41 AM CDT Oxygen Saturation 98% 11/16/2024 8:41 AM CDT Inhaled Oxygen Concentration - - Weight 101.6 kg (223 lb 14.4 oz) 11/16/2024 8:41 AM CDT Height 185.4 cm (6' 1) 11/16/2024 8:41 AM CDT Body Mass Index 29.54 11/16/2024 8:41 AM CDT Plan of Treatment Upcoming Encounters Date Type Department Care Team (Late st Contact Info) Description 08/09/2025 8:00 AM PSYCH SOCIAL WORKER Office Visit [facility] - [facility] - [place] [address] [place] [phone] Damien Otto MD [address] [place] [address] Health Maintenance Due Date Last Done Comments Cologuard 1994 Zoster Immunization (1 of 2) 09/29/1999 Medicare Initial AWV [id number] 02/11/2010 Immunochemical Fecal Occult Blood 06/16/2020 06/16/2019 Respiratory Syncytial Virus (RSV) Immunization (Adult) (1 - 1-dose 75+ series) 2024 Influenza Immunization (#1) 02/12/202505/14, 05/26/2019, 04/03/2018, Additional history exists SARS-COV-2 Immunization (2024- season) 2025 Td Immunization Every 10 Years (Adults With 1 Tdap) 09/04/2026 09/04/2016 Colonoscopy 08/22/2029 08/22/2024, 07/15, 08/12/2009 Colorectal Cancer Screening 08/22/2029 AAA Screening Ultrasound Discontinued 01/02/2017 Pneumococcal Immunization (50+ years) Completed 12/09/2017, 09/04/2016 Pneumococcal Immunization Combined Discontinued 12/09/2017, 09/04/2016 Hepatitis C Virus (HCV) Screening Completed 08/06/2023 Hepatitis B Immunization Aged Out No longer eligible based on patient's age to complete this topic Human Papillomavirus (HPV) Immunization Aged Out No longer eligible based on patient's age to complete this topic Meningococcal Immunization (ACWY) Aged Out No longer eligible based on patient's age to complete this topic Rotavirus Immunization Aged Out No lo nger eligible based on patient's age to complete this topic Procedures Procedure Name Priority Date/Time Associated Diagnosis Comments XR - UPPER EXTREMITY 04/03/2025 12:00 AM CDT HEPATITIS C ANTIBODY Routine 08/06/2023 10:30 AM PSYCH SOCIAL WORKER Encounter for hepatitis C screening test for low risk patient STOOL, OCCULT BLOOD, DIAGNOSTIC, VIA GUAIAC STAT 06/16/2019 9:10 AM PSYCH SOCIAL WORKER HM COLONOSCOPY Routine 08/12/2009 from Last 3 Months or Most Recently Relevant to Health Maintenance Results * XR - UPPER EXTREMITY (04/03/2025 12:00 AM CDT) 04/03/2025 us Provider Scan IMG DIAGNOSTIC ORDERABLES Final Result Performing Organization Address [facility] de Phone Number SCAN * HEPATITIS C ANTIBODY (08/06/2023 10:30 AM PSYCH SOCIAL WORKER) hepatitis C antibody 0.07 <1 S/CO [facility] ARCH [id number] B 08/06/2023 10:47 PM PSYCH SOCIAL WORKER [facility] Comment: Signal/Cutoff ratio < 0.79 is Nondetected Signal/Cutoff ratio 0.80-0.99 is Grayzone Signal/Cutoff ratio > 0.99 is Detected Supplemental assays are recommended if signal/cutoff ratio is >/=1.00. Signal/cutoff ratio result >/= 5.00 is 97% predictive of positivity for recombinant immunoblot assay (RIBA) and will be reported to the [place] Department of Public [facility] as required. Blood Venipuncture / Unknown 08/06/2023 10:30 AM PSYCH SOCIAL WORKER 08/06/2023 10:30 AM PSYCH SOCIAL WORKER us Damien Otto MD CHEMISTRY ORDERABLES Betty l Result Performing Organization Address [facility] de Phone Number [facility] [address] [place] [address], [place] * (ABNORMAL) Stool Occult Blood - Diagnostic (06/16/2019 9:10 AM PSYCH SOCIAL WORKER) OCCULT BLOOD DIAG Positive(A ) Negative 06/16/2019 9:48 AM PSYCH SOCIAL WORKER [facility] Stool specimen (specimen) Non-Phlebotomy Collection / Unknown 06/16/2019 9:10 AM PSYCH SOCIAL WORKER 06/16/2019 9:28 AM PSYCH SOCIAL WORKER Erasmo Peraza MD BODY FLUIDS & STOOLS ORDER LEIGHA Final Result Performing Organization Address City/[facility] Co de Phone Number [facility] [address] [place] [address] * HM COLONOSCOPY (08/12/2009) Parker Diamond MD PROCEDURE/MINOR SURGICAL ORDERABLES Final Result from Last 3 Months or Most Recently Relevant to Health Maintenance Insurance MEDICARE [facility] SHARED adobe cq developer Advance Directives Documents on File Type Date Recorded Patient Recording Studio Set Up Worker Expl anation Power of Director Of Health Care Marketing for Health Care 06/17/2019 12:06 PM poa Power of Director Of Health Care Marketing for Health Care 06/17/2019 12:05 PM poa * Full Code (Latest Code Status on File) Date Activated Date Inactivated Comments 06/16/2019 9:47 AM 06/18/2019 3:08 PM CPR-Full Treat ment: FULL ARREST: Attempt Resuscitation/CPR wit intubation and mechanical ventilation. PRE-ARREST: Use entire range of life support measures to stabilize the patient. Care Teams Chemical Research Worker Relationship Specialty Start Date End Date Damien Otto MD [address] [place] [address] PCP - General Internal Medicine 09/03/16 [place] [address] [address] Consulting Physician Orthopaedic Surgery 12/13/18 Dale Gupta MD Consulting Physician Ophthalmology 11/16/24
--- OUTSIDE RECORDS SUMMARY | 2025-04-17 08:13 | XMS_ITS | Encounter Summary ---
Author Organization [facility] Address [address] [place] [address] Phone Care Team Providers Care Customs And Border Protection Officer Name Role Phone Damien Otto MD Primary Care Provider [phone] Aramis Moreno MD Unavailable [phone] Reason for Visit * Reason Comments Medication Refill Encounter Details Date Type Department Care Team (Late st Contact Info) Description 09/17/2021 Refill [facility] - [place] [address] [place] [address] Damien Otto MD [address] [place] [address] Medication Refill Social History Tobacco Use Types Packs/Day Years Used Date Smoking Tobacco: Former Cigarettes 0.1 10 0 09/04/2000 - 09/04/2010 Cigars Smokeless Tobacco: Never Alcohol Use Standard Drinks/Week Comments Not Asked 14 (1 standard drink = 0.6 oz pu re alcohol) 2 beers daily Sexually Active Control Partners Comments Never Sex [...] Recorded In the last 10 days, have eri u been in contact with someone who was confirmed or suspected to have Coronavirus/COVID-19? No / Unsure 09/17/2021 2:22 PM CDT documented as of this encounter Miscellaneous Notes * Telephone Encounter - Myrna Deluna RN - 09/17/2021 3:34 PM CDT Medication approved and signed per standing order protocol. documented in this encounter Plan of Treatment Upcoming Encounters Date Type Department Care Team (Late st Contact Info) Description 08/09/2025 8:00 AM FORMULATION SCIENTIST Office Visit [facility] - Primary Care - [place] [address] [place] [address] Damien Otto MD [address] [place] [address] documented as of this encounter Visit Diagnoses Diagnosis Acute rhinitis Acute nasopharyngitis (common cold) documented in this encounter Additional Health Concerns Assessment Noted Time PHQ-9 Depression Total Score: 0 12/10/19 18 10:00 AM CDT documented as of this encounter Care Teams Customs And Border Protection Officer Relationship Specialty Start Date End Date Damien Otto MD [address] [place] [address] PCP - General Internal Medicine 09/03/16 [place] [address] [address] Consulting Physician Orthopaedic Surgery 12/13/18 Dale Gupta MD Consulting Physician Ophthalmology 11/16/24 documented as of this encounter
--- OUTSIDE RECORDS SUMMARY | 2025-04-17 08:13 | XMS_ITS | Encounter Summary ---
Author Organization [facility] Address [address] [place] [address] Phone Care Team Providers Care Director Print Name Role Phone Damien Otto MD Primary Care Provider [phone] Aramis Moreno MD Unavailable Reason for Visit * Reason Onset Date Comments Medication Refill Medication Refill 03/31/2021 Encounter Details Date Type Department Care Team (Late st Contact Info) Description 03/29/2021 Refill [facility] - Primary Care - [place] [address] [place] [address] Damien Otto MD [address] [place] [address] Medication Refill; Medication Refill Social History Tobacco Use Types [...] on file documented as of this encounter Plan of Treatment Upcoming Encounters Date Type Department Care Team (Late st Contact Info) Description 08/09/2025 8:00 AM IT INTEGRATION ARCHITECT Office [facility] - [facility] - [place] [address] [place] [address] Damien Otto MD [address] [place] [address] documented as of this encounter Visit Diagnoses Diagnosis Anxiety and depression Dysthymic disorder documented in this encounter Additional Health Concerns Assessment Noted Time PHQ-9 Depression Total Score: 0 12/10/19 18 10:00 AM CDT documented as of this encounter Care Teams Director Print Relationship Specialty Start Date End Date Damien Otto MD [address] [place] [address] PCP - General Internal Medicine 09/03/16 [place] [address] [place] [address] Consulting Physician Orthopaedic Surgery 12/13/18 Dale Gupta MD Consulting Physician Ophthalmology 11/16/24 documented as of this encounter
--- OUTSIDE RECORDS SUMMARY | 2025-04-17 08:13 | XMS_ITS | Clinical Summary ---
Author Organization [facility] [address] Address [address] [place] [address] Care Team Providers Care Warp Hanger Name Role Phone Damien Otto MD Primary [...] on file Legal Sex Male 10:44 AM DISPATCH LEAD Gender Identity Not on file Sexual Orientation [...] Plan of Treatment Not on file Insurance [facility] MEDICARE Care Teams Warp Hanger Relationship Specialty Start Date End Date Daimen Otto MD [address] [place] [address] PCP - General Internal Medicine 10/10/21
--- NOTE | 2025-04-17 08:38 | ECG_ITS ---
Test Date: 2025-04-17 08:52:21 Measurements Intervals Shiro Rate: 67 P: 58 WV: 184 QRS: 2 QRSD: 105 T: 34 QT: 388 QTc: 412 Interpretive Statements SINUS RHYTHM No previous ECG available for comparison Electronically Signed On 04-17-2025 21:20:59 GAMBRELER HELPER by David Lima M.D.
== END 2025-04-17 08:06 | disposition home or self-care (01) ==
PROVIDERS: PCP Internal Medicine; Visit Provider Anesthesiology
DX: Z01.810 Encounter for preprocedural cardiovascular examination (principal); I10 Essential (primary) hypertension; Z87.891 Personal history of nicotine dependence
CPT/HCPCS: 93005